=== PATIENT | male | born 1950 ===

== ENCOUNTER 2018-09-08 13:17 | Emergency (ER) | payer BC, OTHER ==
[2018-09-08 13:27] VITALS: BP 140/85
--- NOTE | 2018-09-08 13:38 | UC ---
Complaint Male HPI - HPI Summary HPI Summary: CHIEF COMPLAINT and HPI: This is a 67-year-old male with complaints of urinary discomfort , getting yesterday. Dr. Ramirez called about the patient. He has a history of prostatic neoplasm with prostatectomy in 2006. VITAL SIGNS & SaO2 REVIEWED. Within normal limits unless noted here. 140/85. NURSES NOTE REVIEWED. "yesterday pt developed pain with urination. pt has hx of frequent UTI's (1-2x per year), pt sees Dr Gilliland for this hx prostatectomy " - History of Current Complaint Chief Complaint: UCGU Stated Complaint: URINARY COMPLAINT Time Seen by Provider: 09/08/18 13:28 Pain Intensity: 0 - Allergies/Home Medications Allergies/Adverse Reactions: Allergies Allergy/AdvReac Type Severity Reaction Status Date / Time No Known Allergies Allergy Verified 09/08/18 13:27 Home Medications: Home Medications Cholecalciferol TAB* [Vitamin D TAB*] 1,000 unit PO DAILY 09/08/18 [History Confirmed 09/08/18] Multivitamin [Multivitamins] 1 cap PO DAILY 09/08/18 [History Confirmed 09/08/18 ] Hague-3 Fatty Acids/Fish Oil [[place] 3 1,000 mg Softgel] 1 cap PO DAILY 09/08/18 [History Confirmed 09/08/18] PMH/Surg Hx/FS Hx/Imm Hx - Additional Past Medical History Additional PMH: PAST MEDICAL HISTORY- prostatectomy in 2006 CHRONIC and RECURRENT HEALTH PROBLEM LIST REVIEWED. Information relevant to present complaint: Intermittent urinary tract infections. Review of cultures reveal infection with pseudomonas as well as Escherichia coli. Both are sensitive to Cipro. The Escherichia coli is resistant to Septra. VISIT HISTORY REVIEWED. MEDICATIONS & ALLERGIES REVIEWED. HYPERTENSION STATUS: No antihypertensive medication FAMILY HISTORY: Positive for: hypertension, cardiovascular disease, stroke, diabetes, cancer. Patient denies family history of: hypertension, cardiovascular disease, stroke, diabetes, cancer. SOCIAL HISTORY: non-smoker, lives , and works as a . Previously Healthy: Yes - Surgical History Surgical History: Yes Surgery Procedure, Year, and Place: 2006 - prostate/bladder surgery. cataracts - Social History Alcohol Use: None Substance Use Type: None Smoking Status (MU): Never Smoked Tobacco Review of Systems All Other Systems Reviewed And Are Negative: Yes Constitutional: Positive: Negative. Negative: Fever Respiratory: Positive: Negative. Negative: Shortness Of Breath Cardiovascular: Positive: Negative. Negative: Palpitations Gastrointestinal: Positive: Negative. Negative: Abdominal Pain Genitourinary: Positive: Dysuria Is Patient Immunocompromised?: No Physical Exam - Summary Physical Exam Summary: Appearance: The patient is well-appearing, is in no pain or distress, and is well-nourished. Eyes: Conjunctiva are clear. Pupils are equal and reactive to light and accommodation. Extra ocular muscle movement is intact. ENT: The hearing is grossly normal, the pharynx is normal, and the TMs are normal. There is no muffled or hoarse voice. No stridor. Neck: The neck is supple and there is no lymphadenopathy. Respiratory: The chest is non-tender to palpation and without crepitus. The lungs are clear, there are normal breath sounds, and there is no respiratory distress. No wheezes, rales or rhonchi. Cardiovascular: Heart sounds reveal a regular rate and rhythm. There are no clicks, rubs or murmurs. There are no carotid bruits or thrills. Circulation is grossly intact. Abdomen: The abdomen is soft and nontender. There is no organomegaly. Bowel sounds are present and within normal limits. No point tenderness at McBurneys point. No supra-pubic or CVA tenderness. Musculoskeletal: Strength is intact. The patient moves all extremities. Neurological: The patient is alert. Motor and sensory are examination grossly intact. Speech is normal. Psychological: The patient displays age appropriate behavior, and is conversant. GCS=15. Skin: Negative for rashes. Laboratory Results - last 24 hr 09/08/18 13:36 POC Urine Color Yellow POC Urine Clarity Clear POC Urine pH 6.5 POC Ur Specif [place] 1.010 POC Urine Protein Negative POC Ur Glucose (UA) Negative POC Urine Ketones Negative POC Urine Blood 1+ A POC Urine Nitrite Negative POC Urine Bilirubin Negative POC Urine Urobilinogen 0.2 POC U Leukocyte Esteras 2+ A Triage Information Reviewed: Yes Vital Signs: Initial Vital Signs Temp 97.9 F 09/08/18 13:22 Pulse 63 09/08/18 13:22 Resp 14 09/08/18 13:22 BP 140/85 09/08/18 13:22 Pulse Ox 100 09/08/18 13:22 Vital Signs Reviewed: Yes Complaint Male Course/Dx - Course Course Of Treatment: MEDICAL DECISION MAKING and PLAN: This is a 67-year-old male with complaints of urinary discomfort , getting yesterday. Dr. Ramirez called about the patient. He has a history of prostatic neoplasm with prostatectomy in 2006. UA is consistent with infection. I will start him on Cipro, 500 mg, twice a day for 10 days. Examination of his previous UTIs shows resistance to Septra. My diagnosis is urinary tract infection. MEDICATIONS REVIEWED. HYPERTENSION STATUS REVIEWED WITH PATIENT IF blood pressure is above 120/80. Patient will follow up with PMD within 4 weeks for elevated BP. - Differential Dx/Diagnosis Differential Diagnosis/HQI/PQRI: Pyelonephritis, Urinary Tract Infection Provider Diagnosis: Urinary tract infection Discharge - Sign-Out/Discharge Documenting (check all that apply): Patient Departure All imaging exams completed and their final reports reviewed: No Studies - Discharge Plan Condition: Stable Disposition: HOME Prescriptions: Ciprofloxacin TAB* [Cipro Tab*] 500 mg PO BID #20 tab MDD 2 Patient Education Materials: Urinary Tract Infection in Men (ED) Referrals: Ginger Fregoso MD [Primary Care Provider] - Additional Instructions: WE DISCUSSED: PLEASE SEEK CARE AT THE EMERGENCY DEPARTMENT IF SYMPTOMS WORSEN OR IF NEW SYMPTOMS DEVELOP. FOLLOW UP WITH YOUR PRIMARY CARE PHYSICIAN IF CONDITION CONTINUES BEYOND 3 DAYS WITHOUT IMPROVEMENT. YOUR DIAGNOSIS IS: urinary tract infection YOUR PRESCRIPTION RECOMMENDATION IS: cipro, 500mg, twice a day for 10 days OTHER INSTRUCTIONS: Hypertension Discharge Instructions: recheck your blood pressure in the next month. it was elevated at 140/85. - Billing Disposition and Condition Condition: STABLE Disposition: Home
--- NOTE | 2018-09-10 15:36 | UC ---
- Progress Note Progress Note: 09/10/2018 Urine culture: No growth. Pt Rx Ciprofloxacin PO for UTI Please call back patient and inform him of the results. Advised to stop antibiotic if he is feeling better Thank you Tasha Pang PA-C Course/Dx - Diagnoses Provider Diagnoses: Urinary tract infection Discharge - Sign-Out/Discharge Documenting (check all that apply): Post-Discharge Follow Up All imaging exams completed and their final reports reviewed: No Studies - Discharge Plan Condition: Stable Disposition: HOME Prescriptions: Ciprofloxacin TAB* [Cipro Tab*] 500 mg PO BID #20 tab MDD 2 Patient Education Materials: Urinary Tract Infection in Men (ED) Referrals: Ginger Fregoso MD [Primary Care Provider] - Additional Instructions: WE DISCUSSED: PLEASE SEEK CARE AT THE EMERGENCY DEPARTMENT IF SYMPTOMS WORSEN OR IF NEW SYMPTOMS DEVELOP. FOLLOW UP WITH YOUR PRIMARY CARE PHYSICIAN IF CONDITION CONTINUES BEYOND 3 DAYS WITHOUT IMPROVEMENT. YOUR DIAGNOSIS IS: urinary tract infection YOUR PRESCRIPTION RECOMMENDATION IS: cipro, 500mg, twice a day for 10 days OTHER INSTRUCTIONS: Hypertension Discharge Instructions: recheck your blood pressure in the next month. it was elevated at 140/85. - Billing Disposition and Condition Condition: STABLE Disposition: Home
== END 2018-09-08 14:40 | disposition home or self-care (01) ==
LOC: UCEAST 13:17
DX: N39.0 Urinary tract infection, site not specified (principal); Z87.440 Personal history of urinary (tract) infections; Z85.46 Personal history of malignant neoplasm of prostate; Z90.79 Acquired absence of other genital organ(s)
CPT/HCPCS: 81003; 87086; 99212; G0463